=== PATIENT | female | born 1990 | race Caucasian/White ===

== ENCOUNTER 2019-05-17 08:26 | Outpatient (CLI) | payer BC ==
--- NOTE | 2019-05-17 11:41 | NM ---
HEPATOBILIARY SCAN: HISTORY:Nausea with vomiting, unspecified RADIOPHARMACEUTICAL: 5.4 mCi Technetium 99m Mebrofenin injected intravenously FINDINGS: There is normal tracer extraction by the liver with normal excretion into the biliary tracts and smal l bowel loops and normal filling of the gallbladder. The calculated gallbladder ejection fraction following an oral fatty meal measures 84%. IMPRESSION:Normal exam.
== END 2019-05-17 08:27 | disposition home or self-care (01) ==
LOC: NM 08:26
DX: R11.2 Nausea with vomiting, unspecified (principal)
CPT/HCPCS: 78227; A9537